=== PATIENT | male | born 1985 | race Hispanic/Latino ===

== ENCOUNTER 2016-04-28 06:50 | Emergency (ER) | payer SELFPAY ==
[~2016-04-28] VITALS: Ht 175.3 cm; Wt 73.9 kg
[~2016-04-28 06:50] MED LIST: AMOXICILLIN500 M3 PO
[2016-04-28 06:54] VITALS: BP 131/80
--- NOTE | 2016-04-28 07:56 | ED ANIMAL BITE/WOUND CHECK ---
History of Present Illness General Chief Complaint: Suture Removal/Wound Recheck Stated Complaint: SUTURE REMOVAL Source: patient, old records Exam Limitations: no limitations Vital Signs & Intake/Output Vital Signs & Intake/Output Vital Signs Date Time Temp Pulse Resp B/P Pulse O2 O2 Flow FiO2 Ox Delivery Rate 04/28 0654 97.2 72 20 131/80 100 Room Air Allergies Coded Allergies: NO KNOWN ALLERGIES (07/24/11) Reconcile Medications Amoxicillin 500 MG TABLET 1 TAB PO TID LACERATION Triage Note: SUTURE REMOVAL RIGHT MIDDLE FINGER Triage Nurses Notes Reviewed? yes Onset: Abrupt Duration: week(s): (2) Timing: recent history Injury Environment: home Severity: mild HPI: This is a 30 year-old male who presents to the ER for chief complaint of suture removal from his right hand. He sustained a laceration to his hand on . He is kept it in the splint. No fever or chills. He has completed his antibiotic course. Past History Travel History Traveled to [place] past 21 day No Medical History Any Pertinent Medical History? see below for history Neurological: NONE EENT: NONE Cardiovascular: NONE Respiratory: NONE Gastrointestinal: NONE Hepatic: NONE Renal: NONE Musculoskeletal: NONE Psychiatric: NONE Endocrine: NONE Blood Disorders: NONE Cancer(s): NONE [employer]OM[employer]/Reproductive: NONE Surgical History Surgical History: non-contributory Psychosocial History What is your primary language American Tobacco Use: Never used ETOH Use: occasional use Illicit Drug Use: denies illicit drug use Family History Hx Contributory? No Review of Systems Review of Systems Constitutional: Denies: chills, fever. EENTM: Reports: no symptoms. Respiratory: Reports: no symptoms. Cardiovascular: Reports: no symptoms. GI: Reports: no symptoms. Genitourinary: Reports: no symptoms. Musculoskeletal: Reports: no symptoms. Skin: Reports: see HPI. Denies: erythema, rash. Neurological/Psychological: Reports: no symptoms. Hematologic/Endocrine: Denies: bleeding. Immunologic/Allergic: Reports: no symptoms. All Other Systems: Reviewed and Negative Physical Exam Physical Exam General Appearance: well developed/nourished, alert, awake, mild distress Head: atraumatic Eyes: Bilateral: PERRL, EOMI. Ears, Nose, Throat: hearing grossly normal Back: normal inspection Extremities: normal range of motion Neurologic/Psych: awake, alert, oriented x 3, normal mood/affect Skin: intact, normal color, warm/dry Progress Differential Diagnosis: suture removal Plan of Care: 04/28/2016 7:54:34 AM Sutures removed without incident. Topical bacitracin applied. Departure Departure Time of Disposition: 0754 Disposition: HOME OR SELF CARE Condition: Stable Clinical Impression Primary Impression: Visit for suture removal Referrals: Gricelda SAUNDERS MD (PCP/Family) Additional Instructions: Topical antibiotic ointment as needed. Dress the wound until fully healed. Departure Forms: Customer Survey General Discharge Information
== END 2016-04-28 07:56 ==
LOC: ERH 06:50
DX: Z48.02 Encounter for removal of sutures (principal)
CPT/HCPCS: 99281